=== PATIENT | female | born 1990 | race Hispanic/Latino ===

== ENCOUNTER 2017-04-21 13:17 | Emergency (ER) | payer OTHER ==
[2017-04-21 14:08] LABS: #Basophils 0.1 thou/uL (0.0-0.2); #Eosinphils 0.2 thou/uL (0.0-0.7); #Lymphocytes 3.9 thou/uL (1.20-3.40); #Monocytes 0.7 thou/uL (0.11-0.59); #Neutrophils 6.7 thou/uL (1.40-6.50); %Basophils 0.9 % (0.0-1.0); %Eosinophils 1.7 % (0.0-10.0); %Lymphocytes 33.5 % (21.0-51.0); %Monocytes 5.7 % (0.0-10.0); Hematocrit 38.7 % (36.0-47.0); Mean Platelet Volume 6.7 fL (7.4-10.4); White Blood Cell (WBC) Count 11.5 thou/uL (4.8-10.8)
[2017-04-21] MEDS ORDERED: Ketorolac Tromethamine 30 MG/ML VIAL ONE (14:24)
[2017-04-21] MEDS ORDERED: Metoclopramide HCl 10 MG/2 ML VIAL ONE (14:24)
[2017-04-21] MEDS ORDERED: Dexamethasone 10 MG/ML VIAL ONE (14:24)
[2017-04-21] MEDS ORDERED: Lorazepam 2 MG/ML VIAL ONE (14:24)
[2017-04-21 14:30] LABS: ALT (SGPT) 10 U/L (8-55); AST (SGOT) 16 U/L (5-34); Alkaline Phosphatase 95 U/L (40-150); Anion Gap 17 mmol/L (10-20); BUN (Urea Nitrogen) 9 mg/dL (7.0-18.7); Bilirubin, Total 0.7 mg/dL (0.2-1.2); Calc. Creatinine Clearance 0 mL/min (70-130); Calcium 9.7 mg/dL (7.8-10.44); Carbon Dioxide 20 mmol/L (22-29); Chloride 104 mmol/L (98-107); Estimated GFR-MDRD Greater than 90; Globulin 3.7 g/dL (2.4-3.5); Protein, Total 8.3 g/dL (6.0-8.3)
[2017-04-21 14:43] LABS: Bilirubin Negative (Negative); Blood, Urine Negative (Negative); Glucose, Urine (Dipstick) Negative (Negative); Ketone, Urine Negative (Negative); Nitrite Negative (Negative); Protein, Urine (Dipstick) Negative (Neg-Trace); Urobilinogen 0.2 mg/dL (0.2-1.0)
[2017-04-21 14:44] LABS: CK (CPK) 106 U/L (29-168); Lipase 20 U/L (8-78)
[2017-04-21] MEDS ORDERED: Meclizine HCl 25 MG TAB ONE (15:00)
--- NOTE | 2017-04-21 15:33 | CT ---
HEAD CT WITHOUT CONTRAST 04/21/17 COMPARISON: 05/23/14 HISTORY: Altered mental status, sudden onset of feeling flushed with nausea, blurred vision and dizziness, ve rtigo. TECHNIQUE: Serial axial CT imaging obtained at 5 mm intervals from the vertex through the skull base without co ntrast. FINDINGS: The imaged paranasal sinuses/mastoid air cells are well aerated. There is no displaced calvarial fra cture. No intracranial hemorrhage, midline shift, mass effect or ventricular enlargement. IMPRESSION: No acute findings. POS: [facility]
== END 2017-04-21 17:09 | disposition home or self-care (01) ==
LOC: ERS 13:17
DX: G43.909 Migraine, unspecified, not intractable, without status migrainosus (principal); E03.9 Hypothyroidism, unspecified; Z79.899 Other long term (current) drug therapy
CPT/HCPCS: 70450; 80053; 81003; 81025; 82550; 83690; 84703; 85025; 93005; 96365; 96366; 96375; J1100; J1885; J2060; J2765

== ENCOUNTER 2017-08-18 15:03 | Emergency (ER) | payer OTHER ==
--- NOTE | 2017-08-18 16:44 | RAD ---
LEFT ANKLE THREE VIEWS: 08/18/17 HISTORY: Left ankle injury. FINDINGS: Ankle mortise is intact. No acute fracture, dislocation, or aggressive osseous erosions are apparent. IMPRESSION: No acute osseous abnormalities are demonstrated. POS: [facility]
== END 2017-08-18 17:01 | disposition home or self-care (01) ==
LOC: ERS 15:03
DX: S93.402A Sprain of unspecified ligament of left ankle, initial encounter (principal); G43.909 Migraine, unspecified, not intractable, without status migrainosus; E03.9 Hypothyroidism, unspecified; W18.30XA Fall on same level, unspecified, initial encounter

== ENCOUNTER 2017-09-03 09:56 | Outpatient (CLI) | payer OTHER ==
--- NOTE | 2017-09-03 14:24 | MRI ---
MRI LEFT SHOULDER WITHOUT CONTRAST: INDICATIONS: Left shoulder pain with popping for eight weeks. Injury while weight lifting. COMPARISON: None. FINDINGS: The rotator cuff is intact. No abnormal fluid is seen in the subacromial or subdeltoid bursa. No os acromiale is evident. The AC joint is normal appearing. No muscular atrophy is present. No e nlarged lymph nodes are evident. The biceps anchor complex appears intact. The inferior glenohumeral labral ligamentous complex appears intact. There is some subtle high T2 si gnal involving the posterior-inferior aspect of the glenoid and the adjacent glenoid labrum, which is nonspecific. This is best seen on image 8 and image 7 of series 2 and is confirmed on coronal image 13 of series 4. This may reflect a small chondrolabral tear in the posterior-inferior glenoid. The biceps tendon is located. IMPRESSION: 1. Abnormal linear and high T2 signal involving the posterior-inferior glenoid labrum and adjacent g lenoid head may reflect a small focal area of a chondral labral separation. Repeat MRI with intraart icular contrast may be helpful to better delineate this possible tear. 2. No additional acute abnormalities. POS: [facility]
--- NOTE | 2017-09-03 14:27 | MRI ---
MRI OF THE LEFT KNEE WITHOUT CONTRAST: Date: 09/03/17 HISTORY: Left knee pain with popping for 8 weeks after fall. COMPARISON: None. FINDINGS: No joint effusion is evident. No popliteal cyst is noted. IT band and popliteus appear within normal limits. The MCL, LCLC, ACL, and PCL are intact. There is some curvilinear increased T2 signal involving the posterior root of the medial meniscus on the sagittal T2-weighted images without corresponding signal abnormalities on the proton density weig hted images. There is some pulsation artifact within this region on the sagittal T2 fat sat images, a s well as the coronal T2 and fat sat images. This is a single slice phenomenon on the sagittal images and therefore, meniscal tear is not favored within the medial meniscus. The lateral meniscus is inta ct. Articular cartilage appears preserved within the femorotibial and patellofemoral compartments. The extensor mechanism is intact. IMPRESSION: No acute internal derangement of the left knee. POS: [facility]
== END 2017-09-03 09:57 | disposition home or self-care (01) ==
LOC: MRI 09:56
PROVIDERS: ATTEND Family Medicine
DX: M24.812 Other specific joint derangements of left shoulder, not elsewhere classified (principal)

== ENCOUNTER 2017-09-16 13:36 | Outpatient (CLI) | payer OTHER ==
[~2017-09-16 13:36] MED LIST: EPINEPHrine 1 MG/ML AMP ONE; Gadobenate Dimeglumine 529 MG/1 ML (20ML VIAL) ONE; Iopamidol 300 61% 30 ML VIAL ONE; Lidocaine 1% PF 10 ML AMP ONE
--- NOTE | 2017-09-16 15:47 | RAD ---
EXAM: LEFT SHOULDER ARTHROGRAM ; HISTORY: Joint derangement. Pain. COMPARISON: None. EXPOSURE: 0.1 minutes, 16.19 mGy. FINDINGS: Three views of the left shoulder does not identify any fracture or dislocation. The visualized left r ibs are unremarkable. Successful left shoulder arthrogram. Total of 12 mL of contrast admixture was a dministered. Patient tolerated the procedure well. No immediate or postprocedure complication. TECHNIQUE: Consent obtained to perform a left shoulder arthrogram. The left shoulder was prepped and draped in t he sterile fashion. 1% lidocaine, buffered with sodium bicarbonate was used for local anesthesia. Und er fluoroscopic guidance, a 22 gauge spinal needle was advanced in the joint space. Total of 12 mL of the contrast admixture was administered in the joint space. Patient tolerated the procedure well. No immediate or postprocedure complication. IMPRESSION: Successful left shoulder arthrogram. POS: [facility]
--- NOTE | 2017-09-16 16:25 | MRI ---
MR ARTHROGRAM OF THE LEFT SHOULDER: 09/16/17 INDICATION: Shoulder pain with popping for eight weeks. TECHNIQUE: Multiplanar and multisequence MR images were obtained of the left shoulder with intra-articular contr ast. COMPARISON: Comparisons are made with the prior MR of the left shoulder dated 09/03/17. FINDINGS: There is improved distention of the glenohumeral joint space due to the dilute gadolinium. This helps to delineate the glenoid labrum much more effectively. No definite full thickness glenoid labral tea r is evident. The high curvilinear T2 signal seen involving posterior superior margin of the glenoid is not reproduced on this examination and may reflect artifact from the adjacent glenohumeral joint f luid adjacent to the glenoid labrum in this location on the prior exam. The glenohumeral articular larson rface appears normal. The anterior inferior glenohumeral labral ligamentous complex is intact. Biceps anchor complex is intact. The rotator cuff is intact. The biceps tendon is located. No intra-articul ar body is evident. IMPRESSION: 1. Curvilinear T2 signal adjacent to the posterior inferior margin of the glenoid on the prior e xamination was likely artifactual. The improved visualization of the glenoid labrum reveals no underl liliana glenoid labral tear. 2. The inferior glenohumeral labral ligamentous complex and biceps anchor complex are intact. 3. Glenohumeral articular surface is normal. 4. Rotator cuff is intact. POS: [facility]
== END 2017-09-16 13:37 | disposition home or self-care (01) ==
LOC: RAD 13:36
PROVIDERS: ATTEND Family Medicine
DX: M24.812 Other specific joint derangements of left shoulder, not elsewhere classified (principal)
CPT/HCPCS: 23350; A9579; J0171; J7050

== ENCOUNTER 2017-11-25 14:24 | Emergency (ER) | payer OTHER ==
[2017-11-25] MEDS ORDERED: Ketorolac Tromethamine 30 MG/ML VIAL ONE (15:14)
[2017-11-25] MEDS ORDERED: Dexamethasone 4 mg/ml Vial ONE (15:14)
[2017-11-25] MEDS ORDERED: Metoclopramide HCl 10 MG/2 ML VIAL ONE (15:14)
[2017-11-25] MEDS ORDERED: diphenhydrAMINE 50 MG/ML VIAL ONE (15:14)
== END 2017-11-25 16:13 | disposition home or self-care (01) ==
LOC: ERS 14:24
DX: G43.909 Migraine, unspecified, not intractable, without status migrainosus (principal); E03.9 Hypothyroidism, unspecified; Z79.899 Other long term (current) drug therapy
CPT/HCPCS: 96365; 96375; J1100; J1200; J1885; J2765

== ENCOUNTER 2018-04-06 15:06 | Outpatient (CLI) | payer OTHER ==
[~2018-04-06 15:06] MED LIST changes: -EPINEPHrine 1 MG/ML AMP ONE; -Gadobenate Dimeglumine 529 MG/1 ML (20ML VIAL) ONE; +ISOVUE-370 76%-LOCM 1 ML ONE; -Iopamidol 300 61% 30 ML VIAL ONE; -Lidocaine 1% PF 10 ML AMP ONE
--- NOTE | 2018-04-06 18:13 | CT ---
CT ABDOMEN AND PELVIS WITH IV AND ORAL CONTRAST: 04/06/18 HISTORY: Abdominal pain. COMPARISON: 02/12/17. FINDINGS: Lung bases are clear. The liver, spleen, kidneys, adrenal glands and pancreas have a normal appearanc e. No evidence of bowel obstruction. Appendix is not inflamed. Intrauterine contraceptive device is i n place. IMPRESSION: No significant abnormalities are demonstrated. POS: [facility]
== END 2018-04-06 15:07 | disposition home or self-care (01) ==
LOC: BICCT 15:06
PROVIDERS: ATTEND Family Medicine
DX: R10.84 Generalized abdominal pain (principal); R10.10 Upper abdominal pain, unspecified; R74.0 Nonspecific elevation of levels of transaminase and lactic acid dehydrogenase [LDH]
CPT/HCPCS: 74177; 76700

== ENCOUNTER 2018-05-06 12:44 | Outpatient (CLI) | payer OTHER ==
--- NOTE | 2018-05-06 16:49 | NM ---
NUCLEAR MEDICINE HIDA SCAN 05/06/18 INDICATION: Upper abdominal pain, unspecified. RADIOPHARMACEUTICAL: 5 millicuries technetium 99m Mebrofenin IV. FINDINGS: The gallbladder is visualized by 5 minutes of imaging. Subsequent activity is seen within the bowel. Gallbladder ejection fraction is calculated, after administration of 8 oz of protein supplementation ingested orally. Gallbladder ejection fraction measures greater than 90% which is normal. IMPRESSION: 1. Visualization of gallbladder excludes cystic duct obstruction. 2. Normal gallbladder ejection fraction makes biliary dyskinesia unlikely. POS: [facility]
== END 2018-05-06 12:45 | disposition home or self-care (01) ==
LOC: NM 12:44
PROVIDERS: ATTEND Family Medicine
DX: R10.10 Upper abdominal pain, unspecified (principal)
CPT/HCPCS: 78227; A9537

== ENCOUNTER 2018-06-08 17:12 | Emergency (ER) | payer OTHER ==
[2018-06-08] MEDS ORDERED: Ondansetron PF 4 MG/2 ML Vial ONE ×2 (17:36→21:38)
[2018-06-08 17:52] LABS: #Basophils 0.1 thou/uL (0.0-0.2); #Eosinphils 0.2 thou/uL (0.0-0.7); #Lymphocytes 3.5 thou/uL (1.20-3.40); #Monocytes 0.5 thou/uL (0.11-0.59); #Neutrophils 4.9 thou/uL (1.40-6.50); %Basophils 0.8 % (0.0-1.0); %Eosinophils 2.5 % (0.0-10.0); %Lymphocytes 38.1 % (21.0-51.0); %Monocytes 5.3 % (0.0-10.0); %Neutrophils 53.3 % (42.0-75.0); Hemoglobin 13.3 g/dL (12.0-16.0); Mean Corpuscular HGB CONC 35.1 g/dL (32.0-36.0); Mean Corpuscular Hemoglobin 30.2 pg (27.0-31.0); Mean Platelet Volume 7.4 fL (7.4-10.4); Platelet Count 347 thou/uL (130-400); RBC Distribution Width 11.7 % (11.5-14.5); Red Blood Cell (RBC) Count 4.42 mill/uL (4.20-5.40); White Blood Cell (WBC) Count 9.2 thou/uL (4.8-10.8)
[2018-06-08 18:04] LABS: ALT (SGPT) 11 U/L (8-55); AST (SGOT) 14 U/L (5-34); Albumin 4.7 g/dL (3.5-5.0); Alkaline Phosphatase 87 U/L (40-150); Anion Gap 12 mmol/L (10-20); BUN (Urea Nitrogen) 6 mg/dL (7.0-18.7); Bilirubin, Total 0.4 mg/dL (0.2-1.2); Calc. Creatinine Clearance 0 mL/min (70-130); Carbon Dioxide 26 mmol/L (22-29); Chloride 106 mmol/L (98-107); Estimated GFR-MDRD Greater than 90; Globulin 3.6 g/dL (2.4-3.5); Glucose 89 mg/dL (70-105); Potassium 3.8 mmol/L (3.5-5.1); Protein, Total 8.3 g/dL (6.0-8.3); Sodium 140 mmol/L (136-145)
[2018-06-08 19:34] LABS: Bilirubin Negative (Negative); Blood, Urine Negative (Negative); Clarity CLEAR (Clear); Glucose, Urine (Dipstick) Negative (Negative); Leukocyte Negative (Negative); Nitrite Negative (Negative); Protein, Urine (Dipstick) Negative (Neg-Trace); Urobilinogen 0.2 mg/dL (0.2-1.0); pH, Urine 7.5 (5.0-9.0)
[2018-06-08 19:36] LABS: Specific Gravity, Urine 1.004 (1.002-1.036)
[2018-06-08] MEDS ORDERED: Morphine 4 MG/ML VIAL ONE (21:38)
== END 2018-06-08 22:31 | disposition home or self-care (01) ==
LOC: ERS 17:12
DX: K92.2 Gastrointestinal hemorrhage, unspecified (principal); G43.909 Migraine, unspecified, not intractable, without status migrainosus; E03.9 Hypothyroidism, unspecified; Z79.899 Other long term (current) drug therapy
CPT/HCPCS: 80053; 81003; 85025; 96374; 96375; 96376; J2270; J2405

== ENCOUNTER 2018-08-12 14:21 | Emergency (ER) | payer OTHER ==
[2018-08-12] MEDS ORDERED: Ondansetron ODT 4 MG TAB ONE ×2 (14:27→14:28)
--- NOTE | 2018-08-12 14:58 | RAD ---
EXAM: CHEST ONE VIEW: History: Palpitations. FINDINGS: Heart size is normal. The lungs are clear. IMPRESSION: No acute intrathoracic disease. POS: [facility]
[2018-08-12] MEDS ORDERED: Ondansetron PF 4 MG/2 ML Vial ONE (17:20)
[2018-08-12 17:21] LABS: #Basophils 0.1 thou/uL (0.0-0.2); #Eosinphils 0.2 thou/uL (0.0-0.7); #Lymphocytes 3.7 thou/uL (1.20-3.40); #Monocytes 0.4 thou/uL (0.11-0.59); #Neutrophils 5.7 thou/uL (1.40-6.50); %Basophils 1.3 % (0.0-1.0); %Eosinophils 1.7 % (0.0-10.0); %Lymphocytes 36.9 % (21.0-51.0); %Neutrophils 56.2 % (42.0-75.0); Hemoglobin 12.8 g/dL (12.0-16.0); Mean Corpuscular HGB CONC 32.2 g/dL (32.0-36.0); Mean Corpuscular Hemoglobin 28.4 pg (27.0-31.0); Mean Corpuscular Volume 88.2 fL (78.0-98.0); Platelet Count 442 thou/uL (130-400); RBC Distribution Width 12.1 % (11.5-14.5); White Blood Cell (WBC) Count 10.1 thou/uL (4.8-10.8)
[2018-08-12 17:34] LABS: BHCG - Serum Negative (NEGATIVE); Pregs Control Background? CLEAR/WHITE (CLR/WHITE); Pregs Control Bar Appear? YES (CONTROL BAR)
[2018-08-12 17:43] LABS: ALT (SGPT) 9 U/L (8-55); AST (SGOT) 15 U/L (5-34); Albumin 4.5 g/dL (3.5-5.0); Alkaline Phosphatase 97 U/L (40-150); Anion Gap 14 mmol/L (10-20); BUN (Urea Nitrogen) 10 mg/dL (7.0-18.7); Bilirubin, Total 0.5 mg/dL (0.2-1.2); Calc. Creatinine Clearance 0 mL/min (70-130); Calcium 10.1 mg/dL (7.8-10.44); Carbon Dioxide 23 mmol/L (22-29); Chloride 104 mmol/L (98-107); Estimated GFR-MDRD Greater than 90; Globulin 3.4 g/dL (2.4-3.5); Glucose 95 mg/dL (70-105); Lipase 23 U/L (8-78); Potassium 3.9 mmol/L (3.5-5.1); Protein, Total 7.9 g/dL (6.0-8.3); Sodium 137 mmol/L (136-145)
--- NOTE | 2018-08-14 19:51 | EKG ---
Test Reason : Blood Pressure : / mmHG Vent. Rate : 095 BPM Atrial Rate : 095 BPM P-R Int : 144 ms QRS Dur : 064 ms QT Int : 328 ms P-R-T Axes : 011 010 022 degrees QTc Int : 412 ms Normal sinus rhythm Normal ECG Confirmed by SIVA HANLEY D.O. ([id number]), photograph editor JARED SLADE ([id number]) on 08/14/2018 7:51:22 PM Referred By: Confirmed By:SIVA HANLEY D.O.
== END 2018-08-12 19:03 | disposition home or self-care (01) ==
LOC: ERS 14:21
DX: E86.1 Hypovolemia (principal); R11.2 Nausea with vomiting, unspecified; G43.909 Migraine, unspecified, not intractable, without status migrainosus; E03.9 Hypothyroidism, unspecified; Z79.899 Other long term (current) drug therapy
CPT/HCPCS: 71045; 80053; 83690; 84443; 84703; 85025; 93005; 96361; 96374; J2405; Q0162

== ENCOUNTER 2019-04-16 09:55 | Emergency (ER) | payer BC ==
[2019-04-16 10:25] LABS: #Basophils 0.1 thou/uL (0.0-0.2); #Eosinphils 0.3 thou/uL (0.0-0.7); #Lymphocytes 3.1 thou/uL (1.20-3.40); #Monocytes 0.4 thou/uL (0.11-0.59); %Eosinophils 2.8 % (0.0-10.0); %Lymphocytes 31.2 % (21.0-51.0); Hemoglobin 12.3 g/dL (12.0-16.0); Mean Corpuscular HGB CONC 33.5 g/dL (32.0-36.0); Mean Corpuscular Hemoglobin 29.2 pg (27.0-31.0); Mean Corpuscular Volume 87.1 fL (78.0-98.0); Mean Platelet Volume 6.6 fL (7.4-10.4); Platelet Count 363 thou/uL (130-400); RBC Distribution Width 11.8 % (11.5-14.5); White Blood Cell (WBC) Count 9.9 thou/uL (4.8-10.8)
[2019-04-16 10:43] LABS: ALT (SGPT) 14 U/L (8-55); AST (SGOT) 15 U/L (5-34); Albumin 4.4 g/dL (3.5-5.0); Alkaline Phosphatase 87 U/L (40-110); Anion Gap 12 mmol/L (10-20); BUN (Urea Nitrogen) 10 mg/dL (7.0-18.7); Bilirubin, Total 1.1 mg/dL (0.2-1.2); Calc. Creatinine Clearance 0 mL/min (70-130); Calcium 9.2 mg/dL (7.8-10.44); Carbon Dioxide 25 mmol/L (22-29); Chloride 106 mmol/L (98-107); Estimated GFR-MDRD 83; Glucose 87 mg/dL (70-105); Potassium 4.1 mmol/L (3.5-5.1); Protein, Total 7.4 g/dL (6.0-8.3); Sodium 139 mmol/L (136-145)
[2019-04-16] MEDS ORDERED: Promethazine HCl 25 MG/ML VIAL ONE (11:13)
--- NOTE | 2019-04-16 11:15 | RAD ---
EXAM: Chest PA and lateral: HISTORY: Irregular heart rate for 3 days COMPARISON: 08/12/2018 FINDINGS: Heart size:Within normal limits. Lungs:Clear of acute process. No confluent pneumonia, overt edema, pleural effusion, or other acute process. IMPRESSION: No significant acute intrathoracic disease.
[2019-04-16 11:50] LABS: T4 7.6 ug/dL (4.87-11.72)
[2019-04-16 13:12] LABS: Bilirubin Negative (Negative); Blood, Urine Negative (Negative); Clarity Clear (Clear); Glucose, Urine (Dipstick) Normal (Negative); Leukocyte Negative Leu/uL (Negative); Nitrite Negative (Negative); Protein, Urine (Dipstick) 20 mg/dL (Neg-Trace)
[2019-04-16 13:21] LABS: Pregnancy Test - Urine (BHCG) Negative (Negative); Pregu Control Background? CLEAR/WHITE (CLR/WHITE); Pregu Control Bar Appear? YES (CONTROL BAR)
== END 2019-04-16 13:47 | disposition home or self-care (01) ==
LOC: ERS 09:55
DX: R07.89 Other chest pain (principal); R00.9 Unspecified abnormalities of heart beat; E03.9 Hypothyroidism, unspecified; Z79.899 Other long term (current) drug therapy; G43.909 Migraine, unspecified, not intractable, without status migrainosus
CPT/HCPCS: 36415; 71046; 80053; 81003; 81025; 84436; 84443; 84481; 84484; 85025; 93005; J2550

== ENCOUNTER 2019-04-18 15:38 | Inpatient (IN) | payer BC ==
[2019-04-18 17:19] VITALS: BMI 22.5
--- NOTE | 2019-04-18 18:17 | RAD ---
RADIOGRAPH CHEST 2 VIEWS: DATE: 04/18/2019 HISTORY: 28-year-old female with chest pain. FINDINGS: There is no airspace density, pulmonary edema, pleural effusion, pneumothorax, or cardiomegaly. There is pectus excavatum. IMPRESSION: 1. No acute cardiopulmonary findings. 2. Pectus excavatum.
[2019-04-18] MEDS ORDERED: Communication Order-Pharmacy FS SCH (19:00)
--- NOTE | 2019-04-18 19:31 | HP ---
CHIEF COMPLAINT: Chest pain. HISTORY OF PRESENT ILLNESS: Ms. Robledo is a pleasant 28-year-old female, who comes to the hospital for chest pain. She saw me in the office. [place] and started developing chest pain. However, her heart rate would go up, so she went into the ER and she was admitted, eventually left to be seen here as she was about to come back home. She showed up to my office today and she was complaining of chest tightness, which was ongoing, not alleviating with rest as it was before, so she was admitted for further evaluation and care. She has been seen twice in the ER since . She had a CT of the chest that ruled out pulmonary embolism and dissection. She also had two different tests that were normal in the last few days. She has an IUD in place and unlikely to be . Currently on my evaluation, she continues to have chest pain. PAST MEDICAL HISTORY: 1. Hypothyroidism, on thyroid replacement. 2. Inappropriate sinus tachycardia, which I have seen her for in the past. 3. Migraine headaches. 4. History of Graves disease. PAST SURGICAL HISTORY: None. FAMILY HISTORY: No early coronary artery disease. SOCIAL HISTORY: No alcohol, tobacco, or drugs. ALLERGIES: AUGMENTIN GIVES HER HIVES. OUTPATIENT MEDICATIONS: 1. Levothyroxine 150 mcg a day. 2. Mirena intrauterine device. REVIEW OF SYSTEMS: A 12-point review of systems was done and is all negative unless stated in the history of present illness. PHYSICAL EXAMINATION: VITAL SIGNS: Temperature 97.8, pulse 93, respiratory rate 16, saturating 100% on room air, and blood pressure 130/86. GENERAL: Awake, alert, and oriented x3, in no distress. HEENT: Normocephalic and atraumatic. NECK: Supple. LUNGS: Clear. CARDIOVASCULAR: S1 and S2. No S3 or S4. No murmurs. ABDOMEN: Soft. Positive bowel sounds. EXTREMITIES: No edema. SKIN: Warm and dry. LABORATORY DATA: Laboratory work was reviewed from most recent visit. Hematology unremarkable. Chemistries are unremarkable. TSH was high at 6.6. A UA was unremarkable. Chest x-ray done earlier tonight showed no acute cardiopulmonary findings, pectus excavatum. ASSESSMENT AND PLAN: 1. Chest pain. Concern for angina. We will plan on doing a heart catheterization. She has had negative stress test in the past. We will plan on doing a heart catheterization tomorrow morning through the right femoral approach. We spoke in the length about the risks and benefits of the procedure. Risks included, but not limited to stroke, VT, , need for blood transfusion, limb loss, and organ loss. The patient understands, verbalized understanding of this and agrees to proceed. 2. If her angiogram is normal, which is most likely what we are going to find, I will start her on Corlanor to try to control her tachycardia. 3. We will also start her on colchicine and indomethacin as this may be some level of pericarditis, it is unclear at this time. 4. Full code. 5. We will follow. Job ID: [id number]
[2019-04-18] MEDS: Morphine 2 MG/ML SYRINGE SLOW IVP PRN ×2 (19:56→23:42)
[2019-04-18] MEDS: Colchicine 0.6 MG TAB PO SCH (19:58)
[2019-04-18] MEDS: Indomethacin 25 mg Capsule PO SCH (19:58)
[2019-04-18] MEDS: Promethazine 25 MG TAB PO PRN (20:08)
[2019-04-18] MEDS: Sodium Chloride 0.9% 1,000 ML IV SCH (20:09)
[2019-04-18 21:49] LABS: Amphetamine Not Detected (NotDetected); Barbiturates Screen Not Detected (NotDetected); Benzodiazepine Screen Not Detected (NotDetected); Cocaine Metabolite Screen Not Detected (NotDetected); Medtox Control Line Valid? VALID (VALID); Medtox Reader # READER 4; Methadone Not Detected (NotDetected); Methamphetamine Not Detected (NotDetected); Opiate Screen Detected (NotDetected); Oxycodone Screen Not Detected (NotDetected); Phencyclidine (PCP) Not Detected (NotDetected); THC/Cannabinoid Screen Not Detected (NotDetected); Tricyclic Screen Not Detected (NotDetected)
[2019-04-18 21:54] LABS: Bilirubin Negative (Negative); Blood, Urine Negative (Negative); Clarity Clear (Clear); Glucose, Urine (Dipstick) Normal (Negative); Leukocyte Negative Leu/uL (Negative); Nitrite Negative (Negative); Protein, Urine (Dipstick) Negative (Neg-Trace); RBC/HPF 0-3 HPF (0-3); WBC/HPF 0-3 HPF (0-3)
[2019-04-18 22:06] LABS: Bacteria/HPF Rare-Few HPF (None Seen)
[2019-04-18 22:08] LABS: Urine Culture Reflex No No
[2019-04-19] MEDS: Colchicine 0.6 MG TAB PO SCH (04:24)
[2019-04-19] MEDS: Indomethacin 25 mg Capsule PO SCH (04:25)
[2019-04-19] MEDS: Morphine 2 MG/ML SYRINGE SLOW IVP PRN (04:25)
[2019-04-19 05:47] LABS: #Basophils 0.1 thou/uL (0.0-0.2); #Eosinphils 0.4 thou/uL (0.0-0.7); #Lymphocytes 3.9 thou/uL (1.20-3.40); #Monocytes 0.4 thou/uL (0.11-0.59); #Neutrophils 5.4 thou/uL (1.40-6.50); %Basophils 0.7 % (0.0-1.0); %Eosinophils 3.6 % (0.0-10.0); %Lymphocytes 38.1 % (21.0-51.0); %Monocytes 4.3 % (0.0-10.0); %Neutrophils 53.3 % (42.0-75.0); Hemoglobin 11.8 g/dL (12.0-16.0); Mean Corpuscular HGB CONC 33.4 g/dL (32.0-36.0); Mean Corpuscular Hemoglobin 29.6 pg (27.0-31.0); Mean Corpuscular Volume 88.5 fL (78.0-98.0); Mean Platelet Volume 7.2 fL (7.4-10.4); Platelet Count 326 thou/uL (130-400); RBC Distribution Width 11.7 % (11.5-14.5); Red Blood Cell (RBC) Count 3.98 mill/uL (4.20-5.40); White Blood Cell (WBC) Count 10.1 thou/uL (4.8-10.8)
[2019-04-19] MEDS: Sodium Chloride 0.9% 1,000 ML IV SCH (05:54)
[2019-04-19] MEDS: Promethazine 25 MG TAB PO PRN ×2 (05:54→11:53)
[2019-04-19] MEDS ORDERED: Levothyroxine 150 MCG TAB PO SCH (06:00)
[2019-04-19] MEDS ORDERED: CEFAZOLIN 2 GM in Premix Bag 1 BAG IVPB SCH (06:15)
[2019-04-19 06:21] LABS: ALT (SGPT) 9 U/L (8-55); AST (SGOT) 12 U/L (5-34); Albumin 3.8 g/dL (3.5-5.0); Alkaline Phosphatase 69 U/L (40-110); Anion Gap 9 mmol/L (10-20); BUN (Urea Nitrogen) 9 mg/dL (7.0-18.7); Bilirubin, Total 0.5 mg/dL (0.2-1.2); Calc. Creatinine Clearance 120 mL/min (70-130); Calcium 8.7 mg/dL (7.8-10.44); Carbon Dioxide 26 mmol/L (22-29); Chloride 108 mmol/L (98-107); Estimated GFR-MDRD Greater than 90; Globulin 2.7 g/dL (2.4-3.5); Glucose 94 mg/dL (70-105); Potassium 4.3 mmol/L (3.5-5.1); Protein, Total 6.5 g/dL (6.0-8.3); Sodium 139 mmol/L (136-145)
[2019-04-19 06:35] LABS: Free T4 (Free Thyroxine) 0.86 ng/dL (0.70-1.48); Thyroid Stimulating Hormone 11.5223 uIU/mL (0.35-4.94)
[2019-04-19] MEDS ORDERED: Lidocaine 1% (PF) 30 ML VIAL ONE (06:37)
[2019-04-19] MEDS ORDERED: Midazolam HCl 2 mg/2 ml Vial ONE (08:14)
[2019-04-19] MEDS ORDERED: Fentanyl 100 MCG/2 ML VIAL ONE (08:14)
[2019-04-19] MEDS: CEFAZOLIN 2 GM in Premix Bag 1 BAG IVPB SCH ×2 (09:57→11:01)
[2019-04-19] MEDS ORDERED: Sodium Chloride 0.9% 1,000 ML IV SCH (11:00)
[2019-04-19] MEDS ORDERED: Iopamidol 370 76% 100 ML VIAL ONE (13:13)
[2019-04-19 15:29] VITALS: BP 111/77; TEMP 98.7
[2019-04-19] MEDS ORDERED: Prevnar 13-Val Conj/PF 0.5 ML SYRINGE IM ONE (17:45)
[2019-04-19] MEDS ORDERED: FLU VACC QS2019-20(6MOS UP)/PF 60 MCG/0.5 ML SYRINGE IM ONE (17:45)
== END 2019-04-19 16:44 | disposition home or self-care (01) | DRG 287 ==
LOC: 2NO 16:23
PROVIDERS: ADMIT Internal Medicine Cardiovascular Disease; ATTEND Internal Medicine Cardiovascular Disease
PROC: B2111ZZ Fluoroscopy of Multiple Coronary Arteries using Low Osmolar Contrast (ICD-10-PCS; principal; 2019-04-19)
PROC: B2151ZZ Fluoroscopy of Left Heart using Low Osmolar Contrast (ICD-10-PCS; 2019-04-19)
DX: I20.9 Angina pectoris, unspecified (principal); R07.9 Chest pain, unspecified; E03.9 Hypothyroidism, unspecified; E05.00 Thyrotoxicosis with diffuse goiter without thyrotoxic crisis or storm; G43.909 Migraine, unspecified, not intractable, without status migrainosus; Z88.1 Allergy status to other antibiotic agents; Z88.8 Allergy status to other drugs, medicaments and biological substances
CPT/HCPCS: 36415; 71046; 80053; 80306; 81001; 81003; 81025; 83880; 84436; 84439; 84443; 84481; 84484; 85025; 93005; 93306; 93458; 96365; 99152; C1769; J1644; J2001; J2250; J2270; J2550; J3010; Q0169; Q9967

== ENCOUNTER 2020-03-01 09:57 | Outpatient (CLI) | payer BC ==
--- NOTE | 2020-03-01 10:38 | ULT ---
GALLBLADDER ULTRASOUND: HISTORY:Abnormal bloating FINDINGS: The liver demonstrates homogeneous echotexture without focal mass or intrahepatic biliary ductal dila tation. No gallstones, gallbladder wall thickening or pericholecystic fluid are seen. The right kidney and pancreas are normal. The common duct [id number] in diameter. No free fluid is seen in the Pastor's pouch. IMPRESSION: Normal exam.
== END 2020-03-01 09:58 | disposition home or self-care (01) ==
LOC: SCSULT 09:57
PROVIDERS: ATTEND Physician Assistant Medical
DX: R10.13 Epigastric pain (principal); R11.0 Nausea; R14.0 Abdominal distension (gaseous)
CPT/HCPCS: 76705

== ENCOUNTER 2023-01-23 12:10 | Outpatient (CLI) | payer BC ==
[~2023-01-23 12:10] MED LIST changes: -ISOVUE-370 76%-LOCM 1 ML ONE; +Iopamidol 370 76% 100 ML VIAL ONE
== END 2023-01-23 12:11 | disposition home or self-care (01) ==
LOC: BICCT 12:10
PROVIDERS: ATTEND Family Medicine
DX: R31.29 Other microscopic hematuria (principal)
CPT/HCPCS: 74178; Q9967

== ENCOUNTER 2024-02-25 11:02 | Outpatient (CLI) | payer BC | END 2024-02-25 11:03 | disposition home or self-care (01) | LOC: DTY/OP 11:02 | PROVIDERS: ATTEND Family Medicine | DX: R63.5 Abnormal weight gain (principal); M32.9 Systemic lupus erythematosus, unspecified | CPT/HCPCS: 97802 ==